=== PATIENT | male | born 1975 | race African-American/Black ===

== ENCOUNTER 2016-11-01 18:37 | Emergency (ER) | payer OTHER ==
[~2016-11-01] VITALS: Ht 185.4 cm; Wt 77.0 kg
[2016-11-01 19:34] VITALS: Ht 185.4 cm; Wt 77.0 kg
[2016-11-02] MEDS ORDERED: SOD CHLORIDE 0.9% 1,000 ML IV STA (02:42)
[2016-11-02] MEDS ORDERED: ENALAPRILAT 1.25 MG INJ IV ONE (03:00)
[2016-11-02 03:16] LABS: ADD SCAN DIFF NO
[2016-11-02 03:17] LABS: ABNORMAL IP MESSAGE 1; BASOPHILS % 0.8 % (0.0-2.0); EOSINOPHILS # 0.1 10^3/ul (0.0-0.5); EOSINOPHILS % 3.2 % (0.0-7.0); HEMATOCRIT 38.3 % (42.0-52.0); HEMOGLOBIN 12.6 g/dl (14.0-18.0); LYMPHOCYTES # 1.3 10^3/ul (0.8-2.9); LYMPHOCYTES % 53.4 % (15.0-51.0); MEAN CORPUSCULAR HEMOGLOBIN 28.6 pg (29.0-33.0); MEAN CORPUSCULAR HGB CONC 32.9 g/dl (32.0-37.0); MEAN CORPUSCULAR VOLUME 86.8 fl (82.0-101.0); MEAN PLATELET VOLUME 10.8 fl (7.4-10.4); MONOCYTE # 0.2 10^3/ul (0.3-0.9); MONOCYTES % 6.8 % (0.0-11.0); NEUTROPHIL # 0.9 10^3/ul (1.6-7.5); NEUTROPHILS % 35.8 % (39.0-77.0); PLATELET COUNT 205 10^3/UL (140-415); RED BLOOD COUNT 4.41 10^6/ul (4.70-6.10); RED CELL DISTRIBUTION WIDTH 13.3 % (11.5-14.5); WHITE BLOOD COUNT 2.5 10^3/ul (4.8-10.8)
[2016-11-02 03:47] LABS: ALBUMIN 4.1 g/dl (3.3-4.9); POTASSIUM 4.5 mmol/L (3.5-5.1)
[2016-11-02 03:49] LABS: CREATININE 1.08 mg/dl (0.61-1.24)
[2016-11-02 03:50] LABS: ALBUMIN/GLOBULIN RATIO 1.02; BILIRUBIN,INDIRECT 0.4 mg/dl (0-1.1); BILIRUBIN,TOTAL 0.4 mg/dl (0.2-1.3); CALCIUM 9.7 mg/dl (8.4-10.2); TOTAL PROTEIN 8.1 g/dl (6.1-8.1)
[2016-11-02] MEDS ORDERED: INSULIN LISPRO 100 UNIT/ML VIAL SC STA (03:58)
--- NOTE | 2016-11-02 04:01 | RADRPT ---
PROCEDURE: XR Chest. CLINICAL INDICATION: Abdominal pain. TECHNIQUE: Single frontal view of the chest was obtained COMPARISON: None FINDINGS: The heart and mediastinum are within normal limits. The lungs are clear. There is no pleural effusion or pneumothorax. IMPRESSION: No acute disease. RPTAT: [facility] Physician Linda Date Time Electronically viewed and signed by Vivienne Rush Physician on 11/02/2016 04:00 RS/
[2016-11-02 04:02] LABS: TROPONIN-I 0.025 ng/ml (0.00-0.12)
[2016-11-02] MEDS ORDERED: HYD25 PO (04:56)
[2016-11-02] MEDS ORDERED: AMLO5TAB4 PO (04:56)
[2016-11-02] MEDS ORDERED: hydrALAzine 20 MG INJ IV ONE (05:00)
--- NOTE | 2016-11-02 05:43 | ERD ---
ER Documentation Chief Complaint Date/Time DATE: 11/02/16 TIME: 05:36 Chief Complaint Dizziness, Foot pain DM2. called for poss admit HPI 41-year-old man referred here by his PMD for hyperglycemia and hypertension. Patient has a history of diabetes mellitus type 2 and states he uses oral medications but denies having a history of hypertension. He has had no pain, no fevers or chills, no headache or blurry vision, no paresis or paresthesias. Patient denies chest pain or difficulty ambulating. ROS All systems reviewed and are negative except as per history of present illness. Medications Home Meds Active Scripts Hydrochlorothiazide* (Hydrochlorothiazide*) 25 Mg Tab, 25 MG PO BID, #60 TAB Prov:JOSE M TRIVEDI MD 11/02/16 Amlodipine Besylate* (Norvasc*) 5 Mg Tablet, 5 MG PO DAILY, #30 TAB Prov:JOSE M TRIVEDI MD 11/02/16 Allergies Allergies: Coded Allergies: No Known Allergy (Unverified , 11/01/16) PMhx/Soc Diabetes mellitus, hypertension Medical and Surgical Hx: pt denies Medical Hx, pt denies Surgical Hx History of Surgery: No Anesthesia Reaction: No Hx Neurological Disorder: No Hx Respiratory Disorders: No Hx Cardiac Disorders: No Hx Psychiatric Problems: No Hx Miscellaneous Medical Probl: No Hx Alcohol Use: No Hx Substance Use: No Hx Tobacco Use: No Smoking Status: Never smoker FmHx Family History: No diabetes Physical Exam Vitals Vital Signs Date Time Temp Pulse Resp B/P Pulse Ox O2 Delivery O2 Flow Rate FiO2 11/02/16 05:21 98.3 85 20 145/89 100 Room Air 11/02/16 02:59 79 19 155/113 100 Room Air 11/01/16 19:34 96.8 69 20 107/60 96 Physical Exam GENERAL: Well-developed, well-nourished, well-hydrated, in no apparent distress , looks nontoxic in appearance HEENT: Moist mucous membranes, pink conjunctiva, no cervical spine tenderness or step-off deformities, no goiter, no jaundice or icterus, extraocular movements intact without pain. No submandibular induration, and no pharyngeal erythema NEURO: Alert and oriented 3, cranial nerves II through XII intact bilaterally, pupils equal round reactive to light, no focal deficits or facial asymmetry, sensation intact distally Strength 5/5 in upper and lower extremities bilaterally CARDIAC: Regular rate and rhythm, no murmurs rubs or gallops LUNGS: Clear bilaterally no wheezing crackles or stridor ABDOMEN: Soft nontender, no guarding, no rigidity, no rebound, no psoas sign no obturator sign. Normoactive bowel sounds SKIN: Warm and dry to touch, no abrasions, contusions, or hematomas, no lacerations, no ecchymosis, no target lesions, and without ulcers EXTREMITIES: No clubbing cyanosis or edema, calves are bilaterally symmetrical, no Homans sign, no popliteal cord sign. Distal pulses equal and bilateral PSYCH: Normal affect without agitation or irritability Result Diagram: 11/02/1625411/02/165 Results 24 hrs Laboratory Tests Test 11/02/16 00:55 11/02/16 02:55 11/02/16 04:46 Bedside Glucose 407mg/dL 337mg/dL Alanine Aminotransferase (ALT/SGPT) 30IU/L Albumin 4.1g/dl Albumin/Globulin Ratio 1.02 Alkaline Phosphatase 75IU/L Anion Gap 18 Aspartate Amino Transf (AST/SGOT) 21IU/L Basophils # 0.010^3/ul Basophils % 0.8% Blood Urea Nitrogen 37mg/dl Calcium Level 9.7mg/dl Carbon Dioxide Level 23mmol/L Chloride Level 100mmol/L Creatinine 1.08mg/dl Direct Bilirubin 0.00mg/dl Eosinophils # 0.110^3/ul Eosinophils % 3.2% Globulin 4.00g/dl Glucose Level 474mg/dl Hematocrit 38.3% Hemoglobin 12.6g/dl Indirect Bilirubin 0.4mg/dl Lipase 75U/L Lymphocytes # 1.310^3/ul Lymphocytes % 53.4% Mean Corpuscular Hemoglobin 28.6pg Mean Corpuscular Hemoglobin Concent 32.9g/dl Mean Corpuscular Volume 86.8fl Mean Platelet Volume 10.8fl Monocytes # 0.210^3/ul Monocytes % 6.8% Neutrophils # 0.910^3/ul Neutrophils % 35.8% Nucleated Red Blood Cells # 0.010^3/ul Nucleated Red Blood Cells % 0.0/100WBC Platelet Count 24306^3/UL Potassium Level 4.5mmol/L Red Blood Count 4.4110^6/ul Red Cell Distribution Width 13.3% Sodium Level 136mmol/L Total Bilirubin 0.4mg/dl Total Protein 8.1g/dl Troponin I 0.025ng/ml White Blood Count 2.510^3/ul Current Medications Medications (Trade) Dose Ordered Sig/Chiqui Route PRN Reason Start Time Stop Time Status Last Admin Dose Admin Sodium Chloride (NS) 1,000 ml @ 1,000 mls/hr Q1H STAT IV 11/02/16 02:42 11/02/16 03:41 DC 11/02/16 03:02 Enalaprilat (Vasotec Iv) 1.25 mg ONCE ONCE IV 11/02/16 03:00 11/02/16 03:01 DC 11/02/16 03:02 Insulin Human Lispro (Humalog) 14 unit ONCE STAT SC 11/02/16 03:58 11/02/16 04:01 DC 11/02/16 05:03 Hydralazine HCl (Apresoline) 20 mg ONCE ONCE IV 11/02/16 05:00 11/02/16 05:01 DC 11/02/16 05:03 [facility] IV line was established patient was placed on cash applications clerk rhythm strip revealed a sinus rhythm at about 80 bpm with upright P and T waves. Patient was afebrile. CBC revealed a leukopenia 2.5, electrolytes revealed dehydration with a BUN/ creatinine of 37/1 and hyperglycemia 474, liver function tests were normal, troponin was negative. EKG performed, read by me revealed a normal sinus rhythm at 79 bpm, normal axis and evidence of left ventricular hypertrophy, left ventricular conduction delay with a QRS duration of 106 ms, no concerning ST elevations or depressions noted. One AP view of the chest performed, read by me reveals no acute infiltrates, normal mediastinum, sharp costophrenic and cardiac borders, no air under the diaphragm. Otherwise unremarkable chest x-ray. I administered 1 L normal saline intravenously lispro insulin 14 units subcutaneous injection for hyperglycemia, enalapril 1.25 mg IV which was then followed by hydralazine 20 mg IV with good response. Blood pressures fell about 20 points. Blood sugar also fell after IV fluids and insulin therapy. Differential diagnoses considered, included but not limited to acute coronary syndrome, pulmonary embolism, aortic dissection, abdominal aortic aneurysm, sepsis, stroke, meningitis, encephalitis, pneumonia, appendicitis, cholecystitis , bowel obstruction, pyelonephritis, nephrolithiasis, cystitis, as well as metabolic, hematologic, and electrolyte abnormalities. As well as abscess, cellulitis, fractures, and dislocations. Patient feels much better at this time, and vital signs are normal, symptoms have improved. I did give strict instructions to return to the ED if symptoms continue or worsen, patient will otherwise follow-up with primary care physician. Patient understood instructions and agreed to plan. Departure Diagnosis: Primary Impression: Hypertension Hypertension type: essential hypertension Qualified Code: I10 - Essential hypertension Additional Impressions: Hyperglycemia Dehydration Condition: Good Patient Instructions: Hyperglycemia (High Blood Sugar), Hypertension, Established Referrals: MONROE PATEL MD (PCP) JOSE M TRIVEDI MD Nov 02, 2016 05:43
[2016-11-02 06:10] VITALS: BP 119/73; PULSE 82; RESP 17; TEMP 97.5
== END 2016-11-02 06:10 | disposition home or self-care (01) ==
LOC: E/R 18:37
DX: I10 Essential (primary) hypertension (principal); E86.0 Dehydration; E11.65 Type 2 diabetes mellitus with hyperglycemia; R40.2142 Coma scale, eyes open, spontaneous, at arrival to emergency department; R40.2252 Coma scale, best verbal response, oriented, at arrival to emergency department; R40.2362 Coma scale, best motor response, obeys commands, at arrival to emergency department; Z79.84 Long term (current) use of oral hypoglycemic drugs
CPT/HCPCS: 36415; 71010; 80053; 82962; 83690; 84484; 85025; 93005; 96372; 96374; 96375; J0360; J7030; Z7502; Z7610; J1815